=== PATIENT | male | born 1970 | race Caucasian/White ===

== ENCOUNTER → 2018-01-05 | Outpatient (CLI) | payer MEDICAID ==
[2018-01-03 09:44] LABS: MICROSCOPIC NOT IND
[2018-01-03 09:45] LABS: BASOPHILS # (AUTO) 0.04 x10^3/uL (0-0.1); BASOPHILS % (AUTO) 1 % (0-1); EOSINOPHILS # (AUTO) 0.44 x10^3/uL (0-0.4); EOSINOPHILS % (AUTO) 5 % (1-7); LYMPHOCYTES # (AUTO) 2.22 x10^3/uL (1-3.4); LYMPHOCYTES % (AUTO) 25 % (22-44); MD NO; MEAN CORPUSCULAR HEMOGLOBIN 29.4 pg (27.5-34.5); MEAN CORPUSCULAR HGB CONC 34.1 g/dL (33.2-36.2); MEAN CORPUSCULAR VOLUME 86.1 fL (81-97); MEAN PLATELET VOLUME 7.2 fL (7.4-10.4); MONOCYTES # (AUTO) 0.69 x10^3/uL (0.2-0.8); MONOCYTES % (AUTO) 8 % (2-9); NEUTROPHILS # (AUTO) 5.65 x10^3/uL (1.8-6.8); NEUTROPHILS % (AUTO) 63 % (42-75); PLATELET COUNT 354 x10^3/uL (130-400); RED BLOOD COUNT 4.84 x10^6/uL (4.38-5.82); RED CELL DISTRIBUTION WIDTH 14.6 % (9.4-14.8)
[2018-01-03 09:53] LABS: CULTURE INDICATED? NO
[2018-01-03 09:55] LABS: ANION GAP 9 mmol/L (5-15); CALCIUM 8.3 mg/dL (8.5-10.1); CHLORIDE 109 mmol/L (98-107); CREATININE 0.72 mg/dL (0.7-1.3); INTERNATIONAL NORMALIZED RATIO 0.97 (0.93-1.1)
[2018-01-03 10:07] LABS: HEMOGLOBIN A1C 5.8 % (4.2-6.3)
[~2018-01-05] VITALS: Ht 162.6 cm; Wt 84.8 kg
[~2018-01-05] MED LIST: ACETAMINOPHEN 500 MG TABLET PO ONE; AMLO5TAB7 PO; CHOL2000 PO; DIPHENHYDRAMINE 50 MG/ML, 1ML IVPush PRN; EPINEPHRINE 1 MG/ML, 1ML ONE; FENTANYL PF 100 MCG/2ML IV PRN; FENTANYL PF 250 MCG/5ML ONE; GABAPENTIN 300 MG CAPSULE PO ONE; HYDROmorphone 2 MG/ML, 1ML IV PRN; KETOROLAC 60 MG/2 ML ONE; LABETALOL 5MG/ML, 20ML IV PRN; LACTATED RINGERS 1,000 ML IV SCH; MEPERIDINE/PF 25MG/0.5ML IVPush PRN; METO50TA82 PO; MIDAZOLAM 1 MG/ML, 2ML ONE; MULT-717 PO; OXYcodone 5 MG/5 ML ORAL.SOL UDC PO PRN; OXYcodone IR 5MG TABLET PO ONE; PROCHLORPERAZINE 5 MG/ML, 2ML IV PRN; ROPIvacaine/PF 0.2%, 20 ML ONE; TRANEXAMIC ACID 100 MG/ML, 10ML ONE; hydrALAzine 20 MG/ML, 1ML IV PRN; morphine SULFATE/PF 1 MG/ML, 10ML ONE
[2018-01-05 11:12] VITALS: BP 150/98
[2018-01-05 11:54] LABS: AMPHETAMINE SCREEN, URINE Positive (Negative); BARBITURATE SCREEN, URINE Negative (Negative); BENZODIAZEPINE SCREEN, URINE Negative (Negative); CANNABINOID SCREEN, URINE Negative (Negative); COCAINE SCREEN, URINE Negative (Negative); METHADONE SCREEN, URINE Negative (Negative); OPIATE SCREEN, URINE Negative (Negative)
== END | disposition home or self-care (01) ==
LOC: UNDOADMIN 10:38 → CLISVCS 10:38 → ORIP 10:38 → UNDODISIN 12:15 → EDSTATUS 12:30
PROVIDERS: ATTEND Orthopaedic Surgery
DX: M17.12 Unilateral primary osteoarthritis, left knee (principal); M25.062 Hemarthrosis, left knee; Z53.9 Procedure and treatment not carried out, unspecified reason; Z88.8 Allergy status to other drugs, medicaments and biological substances; Z79.899 Other long term (current) drug therapy
CPT/HCPCS: 36415; 80048; 80307; 81003; 83036; 85025; 85610; 85730; 87081; 96360; J7120; J0171; J1885; J2250; J2274; J2795; J3010